=== PATIENT | female | born 1990 | race Caucasian/White ===

== ENCOUNTER 2023-05-21 08:30 | Outpatient (CLI) | payer BC | END 2023-05-21 08:31 | disposition home or self-care (01) | LOC: BICRAD 08:30 | PROVIDERS: ATTEND Internal Medicine Rheumatology | DX: M46.1 Sacroiliitis, not elsewhere classified (principal) | CPT/HCPCS: 72202 ==

== ENCOUNTER 2024-06-30 08:00 | Outpatient (CLI) | payer BC | END 2024-06-30 08:01 | disposition home or self-care (01) | LOC: CT 08:00 | PROVIDERS: ATTEND Internal Medicine | DX: K52.9 Noninfective gastroenteritis and colitis, unspecified (principal); K57.92 Diverticulitis of intestine, part unspecified, without perforation or abscess without bleeding; R10.30 Lower abdominal pain, unspecified; K92.1 Melena; Z90.49 Acquired absence of other specified parts of digestive tract | CPT/HCPCS: 74177 ==